=== PATIENT | male | born 2005 | race Caucasian/White ===

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

== ENCOUNTER 2025-01-07 15:52 | Day surgery (SDC) | payer OTHER, SELFPAY ==
[2025-01-07] VITALS (11 sets, daily range): BP systolic 107–130; BP diastolic 67–90; PULSE 88–102; RESP 16–20; TEMP 36.3–36.4; O2SAT 96–100; BMI 24.1
--- NOTE | 2025-01-07 16:45 | EX.ED.DYSGE1 ---
HPI History of Present Illness Chief Complaint: Foreign Body Informant: patient Narrative Narrative: Presents concerning esophageal food impaction. Ate chicken breast couple hours ago. He states he did cut it it was not a large piece. He tried swallowing felt stuck in his upper chest. Tried drinking water would come back up. He states similar sensation when he had impaction in May of last year requiring endoscopy. This was done here. He has not tried carbonated drink. No issues since the last time. Prior similar symptoms: Yes PFSH PFSH Medical History Seasonal allergies SVT (supraventricular tachycardia) Home Medications ?Medication ?Instructions ?Recorded ?Last Taken ?Type lisdexamfetamine 30 mg capsule 30 mg PO DAILY 06/15/23 Unknown History estradiol 1 mg tablet 1 mg PO DAILY 01/07/25 Unknown History omeprazole 40 mg capsule,delayed 40 mg PO DAILY #30 caps 01/07/25 Unknown Rx release Allergy/AdvReac Type Severity Reaction Status Date / Time No Known Allergies Allergy Verified 01/07/25 15:54 Surgical History History of biopsy History of foot surgery Social History Smoking Status: Never smoker alcohol intake: never substance use type: does not use what type of physical activity do you participate in: walking, weight training and other details: Hiking frequency: 3-4 times per week ROS ROS ED Constitutional Constitutional ED: Denies fever(s) ENT ENT ED: Reports other Details: Dysphagia, food impaction Cardiovascular Cardiovascular: Denies chest pain Respiratory/Chest Respiratory/Chest: Denies cough Gastrointestinal Gastrointestinal: Denies diarrhea or vomiting Musculoskeletal Musculoskeletal: Denies none Integumentary Denies rash or wounds Neurologic Neurologic: Denies weakness EXAM Physical Exam Const Vital Signs: 01/07/25 15:54 01/07/25 16:34 01/07/25 17:58 Temperature 97.6 F L 97.6 F L Temperature Source Temporal Pulse Rate 96 96 Respiratory Rate 18 18 Respiratory Effort Normal Respiratory Pattern Normal Blood Pressure 130/86 H 130/86 H Blood Pressure Mean 100 Blood Pressure Source Blood Pressure Position Blood Pressure Location Baseline BP Pulse Ox 98 98 Oxygen Delivery Method Room Air Room Air 01/07/25 18:57 01/07/25 19:00 01/07/25 19:02 Temperature 97.5 F L 97.5 F L Temperature Source Temporal Pulse Rate 102 H 102 H 99 Respiratory Rate 20 H 20 H 16 Respiratory Effort Respiratory Pattern Normal Blood Pressure 119/89 H 116/86 H 119/89 H Blood Pressure Mean 99 96 Blood Pressure Source Monitor Monitor Blood Pressure Position Semi-Fowlers Semi-Fowlers Blood Pressure Location Right Arm Right Arm Baseline BP 130/86 130/86 Pulse Ox 96 98 97 Oxygen Delivery Method Room Air Room Air Room Air 01/07/25 19:05 01/07/25 19:10 01/07/25 19:15 Temperature Temperature Source Pulse Rate 100 99 99 Respiratory Rate 20 H 18 20 H Respiratory Effort Respiratory Pattern Blood Pressure 118/90 H 110/67 110/82 H Blood Pressure Mean 99 81 91 Blood Pressure Source Monitor Monitor Monitor Blood Pressure Position Semi-Fowlers Semi-Fowlers Semi-Fowlers Blood Pressure Location Right Arm Right Arm Right Arm Baseline BP 130/86 130/86 130/86 Pulse Ox 100 96 97 Oxygen Delivery Method Room Air Room Air Room Air 01/07/25 19:20 01/07/25 19:25 01/07/25 19:33 Temperature Temperature Source Pulse Rate 100 95 Respiratory Rate 20 H 20 H Respiratory Effort Respiratory Pattern Normal Blood Pressure 107/87 H 116/77 Blood Pressure Mean 93 90 Blood Pressure Source Monitor Monitor Blood Pressure Position Semi-Fowlers Semi-Fowlers Blood Pressure Location Right Arm Right Arm Baseline BP 130/86 130/86 Pulse Ox 100 98 Oxygen Delivery Method Room Air Room Air 01/07/25 19:37 Temperature 97.3 F L Temperature Source Temporal Pulse Rate 88 Respiratory Rate 16 Respiratory Effort Respiratory Pattern Blood Pressure 107/77 Blood Pressure Mean 87 Blood Pressure Source Monitor Blood Pressure Position Semi-Fowlers Blood Pressure Location Right Arm Baseline BP 130/86 Pulse Ox 98 Oxygen Delivery Method Room Air Positive well nourished and well developed General Appearance ED: well developed and NAD HEENT Reports moist mucous membranes normocephalic and atraumatic Eyes General Eye ED: Yes normal appearance of both eyes Neck full ROM Chest Wall Chest: Negative for tenderness Resp normal respiratory effort and normal air movement Effort and Inspection: symmetric chest movement; Negative for respiratory distress Cardio regular rate, regular rhythm and no murmurs Peripheral Pulses: pulses 2+ throughout GI normal to inspection, nondistended, normoactive bowel sounds and non-tender Palpation: Negative for guarding or rebound tenderness present Extremity normal to inspection General Extremety ED: Negative for edema or tenderness General Extremity: Negative for edema Neuro oriented x3 and no sensory deficits noted Sensorium / Orientation: awake and alert Skin no rashes or lesions noted and no wounds MDM MDM MDM Narrative Medical decision making narrative: Interventions / MDM: Differential diagnosis: Esophageal food impaction, dysphagia Diagnosis considered but do not suspect: N/A My EKG interpretation: N/A Imaging independently reviewed and interpreted by myself: N/A External documents reviewed: ED visit May 2023 for steak impaction resolved after endoscopy. Test considered but not ordered:N/A ED course: Patient similar symptoms from self impaction. Ate chicken this time. Bedside tried carbonated drink, had him stand and heel strike 2 times, he states mild relief however will come back up. Will give glucagon and retry. 1705: Glucagon given reattempt multiple times with little strikes, no success. I will discuss with Dr. Pederson who is on-call and taking care of him on his last event. 1715: I spoke with Dr. Pederson who will call in the team for endoscopy. Re-evaluation: stable Disposition discussed with patient/family/significant other: Patient Case discussed with consulting clinician: General Surgery This note was generated with [employer] dictation software. It may contain incorrect words, spelling, and punctuation that were not noted in checking the note before signing. Discharge Plan Dx/Rx/DC Orders Clinical Impression: Esophageal obstruction due to food impaction, Dysphagia Disposition Disposition: Acute Care Hospital [facility] Discharge Date/Time: 01/07/25 18:37
[2025-01-07] MEDS: Glucagon 1 MG/ML Syringe IV (16:55)
--- NOTE | 2025-01-07 17:56 | PRE.ANES_ITS ---
ASA Classification* ASA Classification ASA Classification: 2 and E Assessment & Plan Anesthesia* Anesthesia Assessment Anesthesia Assessment: Discussed sedation and/or anesthesia options, risks, benefits, and alternatives with patient/parents/legal guardian/POA. Questions invited. The patient/parents/legal guardian/POA seems to understand and agrees to proceed with anesthesia plan. Reviewed the physical assessment, medical history, allergy history and patient home medications list prior to surgery/procedure/anesthetic and documented any changes. Performed airway and anesthesia risk assessments. Anesthesia Type Anesthesia Type: MAC History Source History Obtained from:: Patient and Chart Anesthesia Focused Assessment* Temperature: 97.6 F Pulse Rate: 96 Blood Pressure: 130/86 Respiratory Rate: 18 Pulse Ox: 98 Oxygen Delivery Method: Room Air Airway Assessment Mouth opens: >3 cm Mallampati Score: I Teeth Condition: Intact Neck Range of motion (ROM): Full ROM Labs Anesthesia Preop lab: CBC WBC 8.3 K/mm3 (4.5-13.0) 06/16/23 01:40 06/16/23 RBC 5.31 M/mm3 (4.5-5.1) H 06/16/23 01:40 06/16/23 Hgb 16.0 g/dL (13.0-16.5) 06/16/23 01:40 06/16/23 Hct 48.5 % (36-47) H 06/16/23 01:40 06/16/23 Plt Count 225 K/mm3 (150-450) 06/16/23 01:40 06/16/23 CHEMISTRY Potassium 3.9 mmol/L (3.5-5.1) 06/16/23 01:40 06/16/23 Sodium 140 mmol/L (136-145) 06/16/23 01:40 06/16/23 BUN 10 mg/dL (7-18) 06/16/23 01:40 06/16/23 Creatinine 0.85 mg/dL (0.70-1.30) 06/16/23 01:40 06/16/23 Glucose 107 mg/dL (74-106) H 06/16/23 01:40 06/16/23 COAG Pre-Assessment Diagnosis/Proposed Procedure Planned Operative Procedure(s): Esophagogastroduodenoscopy Anesthesia History Anesthesia History - filling separator: Anesthesia History - filling separator Hx Hospitalization Any Problems With Anesthesia No 06/16/23 03:42 Cholinesterase deficiency No 06/16/23 03:42 You/Your Family Experience No 06/16/23 03:42 fever (hyperthermia) with Relationship Recent Exposure to Contagious No 06/16/23 03:42 Disease Does patient have nerve No 06/16/23 03:42 stimulator Patient instructed to have device shut off --Does patient have Pacemaker or ICD? When Was Last Pacemaker Check QUESTION #4 FULL TEXT: You/Your Family Experience fever (hyperthermia) with Anesthesia Last Oral Intake Last Oral intake: Last Oral Intake NPO since Meds taken in AM with sips of water? Meds patient instructed to take am of surgery Any additional information?: Yes NPO since: 15:30 PONV PONV - filling separator: PONV - filling separator Female HX of Motion Sickness HX of N/V After Surgery Non-Smoker Duration of Surgery greater than 60 minutes Number of Risk Factors PONV Score Height & Weight Height & Weight: Anesthesia: Height & Weight Height 6 ft 1 in 01/07/25 15:54 Weight: 82.962 kg 01/07/25 15:54 Body Mass Index (BMI) 24.1 01/07/25 15:54 Respiratory Assessment Respiratory Assessment - filling separator: Respiratory Tract Infection Hx - filling separator Hx Respiratory Tract Infection No 06/16/23 03:42 STOP Sleep Apnea STOP Sleep Apnea - filling separator: STOP Sleep Apnea - filling separator Hx Hypertension No 06/16/23 03:42 Hx Sleep Apnea No 06/16/23 05:12 CPAP BIPAP Do you snore loudly (louder than talking or can be heard Do you often feel tired/ fatigued/ sleepy during daytime? Has anyone observed you stop breathing during sleep? STOP Results QUESTION #5 FULL TEXT : Do you snore loudly (louder than talking or can be heard through closed doors)? 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 Specify any problems Hx of Preganancy in last 3 Months Nurse Filling Out Transfusion & Questions: Date: Time: Patient unable to answer at this time (ie. confused, unrespo /Reproduction History /Reproductive History - filling separator: /Reproductive Hx- filling separator Hx Now Gestational Age (in weeks): EDC: Hx Hx Para [facility] Medical History Seasonal allergies SVT (supraventricular tachycardia) Home Medications ?Medication ?Instructions ?Recorded ?Last Taken ?Type lisdexamfetamine 30 mg capsule 30 mg PO DAILY 06/15/23 Unknown History estradiol 1 mg tablet 1 mg PO DAILY 01/07/25 Unkno wn History Allergy/AdvReac Type Severity Reaction Status Date / Time No Known Allergies Allergy Verified 01/07/25 15:54 Surgical History History of biopsy History of foot surgery Social History Smoking Status: Never smoker alcohol intake: never substance use type: does not use what type of physical activity do you participate in: walking, weight training and other details: Hiking frequency: 3-4 times per week Review of Systems (Anesthesia) ROS Narrative System reviewed and no additional complaints, except as documented.
[2025-01-07] MEDS: Lactated Ringers 1,000 ML 15 ML IV (18:00)
--- NOTE | 2025-01-07 18:04 | EX.PCM.CON.S ---
Assessment & Plan Assessment/Plan (1) Esophageal obstruction due to food impaction: PLAN: Plan Plan to give patient a prescription for omeprazole and have patient follow-up in the office in 2 to 3 weeks after procedure. I have discussed the above with the patient. I have offered the patient esophagogastroduodenoscopy for evaluation. And removal of foreign body. I have explained the risks/benefits of the procedure and described the procedure. I have discussed the risks with the patient, including but not limited to: infection, bleeding, perforation of the GI tract requiring emergency surgery, inability to complete the procedure, injury to any internal organs, complications of anesthesia, etc. - the patient understands and agrees to proceed. I have answered all the patient's questions to the patient's satisfaction and the patient has no further questions. Sweetie Pederson M.D. Pager: [phone] [facility] [address] [place] [address], [address] [place] [id number] Office: [phone] HPI Consult Data Date of Consult: 01/07/25 HPI Narrative Reason for Consultation: Esophageal food impaction HPI Narrative: JUAN M WAN, is a 19 M who presents to the ER due to esophageal food impaction. Patient had chicken just after 3 PM today. Patient states he is not able to swallow his saliva. Patient did previously have an EGD due to food impaction in May 2023 no stricture was seen. Patient does give a history of food catching for years. Patient is never been on a PPI. [facility] Medical History Seasonal allergies SVT (supraventricular tachycardia) Home Medications ?Medication ?Instructions ?Recorded ?Last Taken ?Type lisdexamfetamine 30 mg capsule 30 mg PO DAILY 06/15/23 Unknown History estradiol 1 mg tablet 1 mg PO DAILY 01/07/25 Unknown History Allergy/AdvReac Type Severity Reaction Status Date / Time No Known Allergies Allergy Verified 01/07/25 15:54 Surgical History History of biopsy History of foot surgery Social History Smoking Status: Never smoker alcohol intake: never substance use type: does not use what type of physical activity do you participate in: walking, weight training and other details: Hiking frequency: 3-4 times per week Physical Exam Const alert, oriented x3 and no apparent distress HEENT normocephalic and head/scalp atraumatic Resp normal respiratory effort Cardio regular rate GI soft to palpation and non-tender; Negative for non-distended Palpation: Negative for guarding Extremity no clubbing, cyanosis or edema Skin no rashes or lesions noted Neuro CN's II-XII intact bilaterally Psych mental status grossly normal
[2025-01-07] MEDS: Lactated Ringers 500 ML IV (18:13)
--- NOTE | 2025-01-07 18:57 | OP.PROVAT_ITS ---
01/07/2025 Elda Hidalgo Re : Upper GI endoscopy procedure for Frankie Hidalgo This procedure was performed on December. My impressions and recommendations are as follows: Impressions : - Normal examined duodenum. - Erythematous mucosa in the antrum. - Food in the lower third of the esophagus. Removal was successful. Recommendations : - Discharge patient to home. - Soft diet. - Continue present medications. - Use Prilosec (omeprazole) 40 mg PO daily. - Return to my office in 2 weeks. My findings are described in the full procedure note, which is enclosed. If I can be of further assistance, please feel free to contact me at Doctor phone number(s): , Work: . Sincerely, MD Sweetie Acosta MD 01/07/2025 6:56:37 PM This report has been signed electronically.
--- NOTE | 2025-01-07 18:57 | OP.EGD_ITS ---
Patient Name: Frankie Mason Procedure Date: 01/07/2025 6:12 PM Date of : 2005 Age: 19 Procedure: Upper GI endoscopy Indications: Foreign body in the esophagus Providers: Sweetie Pederson MD Medicines: Monitored Anesthesia Care Complications: No immediate complications. Procedure: Pre-Anesthesia Assessment: - Prior to the procedure, a History and Physical was performed, and patient medications and allergies were reviewed. The patient's tolerance of previous anesthesia was also reviewed. The risks and benefits of the procedure and the sedation options and risks were discussed with the patient. All questions were answered, and informed consent was obtained. Prior Anticoagulants: The patient has taken no anticoagulant or antiplatelet agents. ASA Grade Assessment: Per anesthesia. After reviewing the risks and benefits, the patient was deemed in satisfactory condition to undergo the procedure. After obtaining informed consent, the endoscope was passed under direct vision. Throughout the procedure, the patient's blood pressure, pulse, and oxygen saturations were monitored continuously. The Endoscope was introduced through the mouth, and advanced to the second part of duodenum. The upper GI endoscopy was technically difficult and complex due to the patient's oxygen desaturation. Successful completion of the procedure was aided by administering oxygen and general anesthesia was induced after sats improved. Moderate Sedation: After desat with appropriate oxygenation- general anesthesia was induced Scope In: 6:22:47 PM Scope Out: 6:43:45 PM Total Procedure Duration Time 0 hours 20 minutes 58 seconds Findings: The examined duodenum was normal. Striped mildly erythematous mucosa without bleeding was found in the gastric antrum. Food was found in the lower third of the esophagus. Removal was accomplished with a bernie forceps and overtube. Partial removal with bernie. After intubating and replacing scope the rest of the food had passed into the stomach. The cardia and gastric fundus were normal on retroflexion. Impression: - Normal examined duodenum. - Erythematous mucosa in the antrum. - Food in the lower third of the esophagus. Removal was successful. Recommendation: - Discharge patient to home. - Soft diet. - Continue present medications. - Use Prilosec (omeprazole) 40 mg PO daily. - Return to my office in 2 weeks. Procedure Code(s): --- Professional --- 29889, Esophagogastroduodenoscopy, flexible, transoral; with removal of foreign body(s) Diagnosis Code(s): --- Professional --- K31.89, Other diseases of stomach and duodenum T18.128A, Food in esophagus causing other injury, initial encounter T18.108A, Unspecified foreign body in esophagus causing other injury, initial encounter CPT copyright 2021 [employer]. All rights reserved. The codes documented in this report are preliminary and upon local combination truck driver review may be revised to meet current compliance requirements. MD Sweetie Acosta MD 01/07/2025 6:56:37 PM This report has been signed electronically. Number of Addenda: 0 Note Initiated On: 01/07/2025 6:12 PM
--- NOTE | 2025-01-07 18:57 | PCM.POST.ANE ---
Anesthesia: Postop Eval I Current Vital Signs Temperature: 97.5 F Pulse Rate: 99 Blood Pressure: 119/89 Respiratory Rate: 16 Pulse Ox: 97 Oxygen Delivery Method: Room Air Assessment Airway patent: Yes Spontaneous unlabored respirations: Yes Mental status: Awake and Calm nausea: No Vomiting: No Anesthesia Complication: Yes Anesthesia Complication Comment:: Patient had episode of desaturation requiring bag/mask ventilation. To avoid further desaturation episodes it was decided to intubate the patient. Easy intubation. Airway secured. Procedure resumed. Fluid Hydration Crystalloid volume administer (ml): 500 Total IV fluid infused: 500 Progress Note Anesthesia document: Postop Eval 1 completed: Yes
[2025-01-07] MEDS: Pantoprazole Sodium 40 MG in 0.9% Normal Saline (100mL MB+) 100 ML 300 MG IV (19:05)
--- NOTE | 2025-01-07 19:25 | PCM.POSTANE2 ---
Anesthesia Postop Eval I Sum Postop Eval Completion status Anesthesia document: Postop Eval 1 completed: Yes Anesthesia Postop Eval I Summary Anesthesia Postop Eval I Summary: Anesthesia Postop Eval I: Assessment Summary Airway patent Yes 01/07/25 19:02 Spontaneous unlabored Yes 01/07/25 19:02 respirations Mental status Awake,Calm 01/07/25 19:02 nausea No 01/07/25 19:02 Vomiting No 01/07/25 19:02 Anesthesia Postop Eval I: Fluid Summary Crystalloid volume administer 500 01/07/25 19:02 (ml) Colloids volume administered ( ml) Blood Product volume administered (ml) Total IV fluid infused 500 01/07/25 19:02 Anesthesia Postop Eval I: Summary Notes Anesthesia Complication Yes 01/07/25 19:02 Anesthesia Complication Patient had 01/07/25 19:02 Comment: episode of desaturation requiring bag/mask ventilation. To avoid further desaturation episodes it was decided to intubate the patient. Easy intubation. Airway secured. Procedure resumed. Post-operative progress note Anesthesia: Postop Eval II Evaluation Mental status: Awake and Calm Pain Level: 1 nausea: No Vomiting: No Complications Anesthesia Complication: No
== END 2025-01-07 19:53 | disposition home or self-care (01) ==
LOC: ED 17:13 → EN 17:37 → AC 18:02
PROVIDERS: Emergency Provider Emergency Medicine; PCP Pediatrics; Visit Provider Surgery
PROC: 0DJ08ZZ Inspection of Upper Intestinal Tract, Via Natural or Artificial Opening Endoscopic (ICD-10-PCS; CPT 43235; principal; 2025-01-07 15:30)
DX: T18.128A Food in esophagus causing other injury, initial encounter (principal); K22.2 Esophageal obstruction; K31.89 Other diseases of stomach and duodenum; R13.10 Dysphagia, unspecified; W44.F3XA Food entering into or through a natural orifice, initial encounter; Z79.899 Other long term (current) drug therapy
CPT/HCPCS: 43247; 99284; A4216; J1610; J2405

== ENCOUNTER 2025-03-01 07:54 | Day surgery (SDC) | payer OTHER, SELFPAY ==
[2025-03-01] VITALS (9 sets, daily range): BP systolic 93–130; BP diastolic 56–97; PULSE 55–78; RESP 14–16; TEMP 36.1–36.3; O2SAT 97–100; BMI 22.4
--- NOTE | 2025-03-01 08:34 | HP.PCM_ITS ---
HPI - General General Date of Service: 03/01/25 HPI Narrative JUAN M WAN, is a 19 M who presents for EGD due to history of food impactions x 2 1 in May 2023 and 1 in December 2024. Patient has been on omeprazole since then states he has had improvement of his dysphagia which was only intermittent as far as history goes. Patient denies any other changes since previous office visit. Office visit 01/20/2025 [facility] HPI: 19-year-old male presents status post EGD for esophageal food impaction. Patient also had an EGD for food impaction last year in May. Patient states he only has occasional food catching maybe once every 6 months or so. Patient states previously he did have reflux in 2021 or 2022 but currently does not have many symptoms. Patient did just start taking the omeprazole about 3 to 4 days ago many symptoms. Patient did just start taking the omeprazole about 3 to 4 days ago from the EGD. EGD did not show any obvious stricture, similar to the one in 2023. [facility] Medical History Wears glasses ADHD Migraine headache Gastric reflux Non-smoker Seasonal allergies SVT (supraventricular tachycardia) Home Medications ?Medication ?Instructions ?Recorded ?Last Taken ?Type lisdexamfetamine 30 mg capsule 60 mg PO DAILY 06/15/23 Unknown History estradiol 1 mg tablet 1 mg PO DAILY 01/07/25 Unkno wn History omeprazole 40 mg capsule,delayed 40 mg PO DAILY #30 ca ps 01/07/25 Unknown Rx release Allergy/AdvReac Type Severity Reaction Status Date / Time No Known Allergies Allergy Verified 03/01/25 08:08 Surgical History History of biopsy History of foot surgery Social History Smoking Status: Never smoker alcohol intake: never substance use type: does not use what type of physical activity do you participate in: walking, weight training and other details: Hiking frequency: 3-4 times per week Past Medical/Surgical History Planned Operation Planned Operative Procedure(s): EGD Previous Hospitalizations/Surgeries HX Hospitalizations: No Any Problems With Anesthesia: No You/Your Family Experience Fever (Hyperthermia) With Anes: No Cholinesterase deficiency: No Cardiovascular Hx Hypertension: No Respiratory Hx Sleep Apnea: No Hx Respiratory Tract Infection/Cold (presently): No Do You Snore Loudly (louder than talking or can be heard): No Do You Often Feel Tired/ Fatigued/ Sleepy Dring Daytime?: No Has Anyone Observed You Stop Breathing During Sleep?: No Result (for STOP score): Negative Smoking Status: Never smoker Neurological Does patient have nerve stimulator: No Reproduction : No Miscellaneous Recent Exposure to Contagious Disease: No Allergies No Known Allergies Allergy (Verified 03/01/25 08:08) Discharge Is Pt Admitted From a Snf, or a Senior Living: No Who Could Help: MOM After D/C, Where Do you Plan to Go: Return Home Vital Signs Vital Signs Vital Signs: 03/01/25 08:09 03/01/25 08:09 Temperature 97.3 F L Temperature Source Temporal Pulse Rate 67 Respiratory Rate 16 Respiratory Pattern Normal Blood Pressure 130/68 H Blood Pressure Mean 88 Blood Pressure Source Monitor Blood Pressure Position Semi-Fowlers Blood Pressure Location Left Arm Pulse Ox 100 Oxygen Delivery Method Room Air Weight Weight: 169 lb 12.095 oz Body Mass Index (BMI) 22.4 Physical Exam Const alert, oriented x3 and no apparent distress HEENT normocephalic and head/scalp atraumatic Resp normal respiratory effort Cardio regular rate GI soft to palpation and non-tender; Negative for non-distended Palpation: Negative for guarding Extremity no clubbing, cyanosis or edema Skin no rashes or lesions noted Neuro CN's II-XII intact bilaterally Psych mental status grossly normal Assessment & Plan Assessment/Plan (1) Dysphagia: Surgery Risks - Colonoscopy I discussed with the patient the risks of the procedure: Yes Risks Include but are not Limited To: Plan for an EGD only risks include but are not limited to: Bleeding, perforation requiring further surgery
--- NOTE | 2025-03-01 09:00 | EGD_PTH ---
PATIENT: JUAN M WAN LOC: EN U#:[id number] AGE/SX: 19/M ROOM: RE03/01/[address]: Dr. Sweetie Pederson MD : 2005 BED: DIS: 03/01/2025 SPEC #: [id number] RECD: 03/01/25 11:38 STATUS: SALVATORE NATHALY #: [id number] MOHIT: 03/01/25 09:[address]: Sweetie Pederson DEPT: SURGICAL PATHOLOGY RECD BY: Ryder Posey ENTERED: 03/01/25 13:27 SP TYPE: EGD BIOPSY TAMMY DR: Dr. Elda Hidalgo MD Tissues: A - Esophagus, NOS B - Esophagus, NOS C - Esophagus, NOS Procedures: Surgery Specimen Level IV HEADER OPERATION: EGD, biopsy PRE-OP DIAGNOSIS: Dysphagia TISSUE SUBMITTED: A- GE junction biopsy, B- Random lower esophagus biopsy, C- Random esophagus biopsy - rule out eosinophilic esophagitis MICROSCOPIC DIAGNOSIS A. Esophagus, biopsy: * Squamous mucosa with reactive changes and > 80 eosinophils per high power field. * Columnar mucosa negative for goblet cell metaplasia. B. Esophagus, lower, random biopsy: * Squamous mucosa with reactive changes and > 50 eosinophils per high power field. C. Esophagus, random, biopsy: * Squamous mucosa with up to 8 eosinophils per high power field. MICROSCOPIC DESCRIPTION Slides are reviewed. GROSS DESCRIPTION A. Received in fixative is one container labeled with the patient's name and designated GE junction biopsy. The specimen consists of one irregular fragment of nash tissue that measures 0.5 cm. The specimen is totally submitted in one cassette. B. Received in fixative is one container labeled with the patient's name and designated Random lower esophagus biopsy. The specimen consists of one irregular fragment of nash tissue that measures 0.3 cm. The specimen is totally submitted in one cassette. C. Received in fixative is one container labeled with the patient's name and designated Random esophagus biopsy. The specimen consists of two irregular fragments of nash tissue that measure 0.1 and 0.6 cm. Smaller fragment unlikely to survive processing. The specimen is totally submitted in one cassette. IN 03/01/2025 CPT:38937j0
--- NOTE | 2025-03-01 09:02 | PCM.PRE.AN2 ---
ASA Classification* ASA Classification ASA Classification: 2 Assessment & Plan Anesthesia* Anesthesia Assessment Anesthesia Assessment: Discussed sedation and/or anesthesia options, risks, benefits, and alternatives with patient/parents/legal guardian/POA. Questions invited. The patient/parents/legal guardian/POA seems to understand and agrees to proceed with anesthesia plan. Reviewed the physical assessment, medical history, allergy history and patient home medications list prior to surgery/procedure/anesthetic and documented any changes. Performed airway and anesthesia risk assessments. Anesthesia Type Anesthesia Type: MAC History Source History Obtained from:: Patient and Chart Anesthesia Focused Assessment* Temperature: 97.3 F Pulse Rate: 67 Blood Pressure: 130/68 Respiratory Rate: 16 Pulse Ox: 100 Oxygen Delivery Method: Room Air Airway Assessment Mouth opens: >3 cm Mallampati Score: I Teeth Condition: Intact Neck Range of motion (ROM): Full ROM Labs Anesthesia Preop lab: CBC WBC, (4.5-13.0) 8.3 K/mm3 06/16/23, 01:40 RBC, (4.5-5.1) 5.31 M/mm3 H 06/16/23, 01:40 Hgb, (13.0-16.5) 16.0 g/dL 06/16/23, 01:40 Hct, (36-47) 48.5 % H 06/16/23, 01:40 Plt Count, (150-450) 225 K/mm3 06/16/23, 01:40 CHEMISTRY Potassium, (3.5-5.1) 3.9 mmol/L 06/16/23, 01:40 Sodium, (136-145) 140 mmol/L 06/16/23, 01:40 BUN, (7-18) 10 mg/dL 06/16/23, 01:40 Creatinine, (0.70-1.30) 0.85 mg/dL 06/16/23, 01:40 Glucose, (74-106) 107 mg/dL H 06/16/23, 01:40 COAG Pre-Assessment Diagnosis/Proposed Procedure Planned Operative Procedure(s): EGD Anesthesia History Anesthesia History - systems lead: Anesthesia History - systems lead Hx Hospitalization No 03/01/25 08:37 Any Problems With Anesthesia No 03/01/25 08:37 Cholinesterase deficiency No 03/01/25 08:37 You/Your Family Experience No 03/01/25 08:37 fever (hyperthermia) with Relationship Recent Exposure to Contagious No 03/01/25 08:37 Disease Does patient have nerve No 03/01/25 08:37 stimulator Patient instructed to have device shut off --Does patient have Pacemaker No 03/01/25 08:09 or ICD? When Was Last Pacemaker Check QUESTION #4 FULL TEXT: You/Your Family Experience fever (hyperthermia) with Anesthesia Last Oral Intake Last Oral intake: Last Oral Intake NPO since 22:30 03/01/25 08:09 Meds taken in AM with sips of No 03/01/25 08:09 water? Meds patient instructed to take am of surgery PONV PONV - systems lead: PONV - systems lead Female No 02/24/25 10:01 HX of Motion Sickness No 02/24/25 10:01 HX of N/V After Surgery No 02/24/25 10:01 Non-Smoker Yes 02/24/25 10:01 Duration of Surgery greater No 02/24/25 10:01 than 60 minutes Number of Risk Factors 1 02/24/25 10:01 PONV Score Low Risk 02/24/25 10:01 Height & Weight Height & Weight: Anesthesia: Height & Weight Height 6 ft 1 in 03/01/25 08:09 Weight: 77 kg 03/01/25 08:09 Body Mass Index (BMI) 22.4 03/01/25 08:09 Respiratory Assessment Respiratory Assessment - systems lead: Respiratory Tract Infection Hx - systems lead Hx Respiratory Tract Infection No 03/01/25 08:37 STOP Sleep Apnea STOP Sleep Apnea - systems lead: STOP Sleep Apnea - systems lead Hx Hypertension No 03/01/25 08:37 Hx Sleep Apnea No 03/01/25 08:37 CPAP BIPAP Do you snore loudly (louder No 03/01/25 08:37 than talking or can be heard Do you often feel tired/ No 03/01/25 08:37 fatigued/ sleepy during daytime? Has anyone observed you stop No 03/01/25 08:37 breathing during sleep? STOP Results Negative 03/01/25 08:37 QUESTION #5 FULL TEXT : Do you snore loudly (louder than talking or can be heard through closed doors)? 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 Specify any problems Hx of Preganancy in last 3 N/A 02/24/25 10:01 Months Nurse Filling Out Transfusion VLEHMAN 02/24/25 10:01 & Questions: Date: 02/24/25 02/24/25 10:01 Time: 10:08 02/24/25 10:01 Patient unable to answer at this time (ie. confused, unrespo /Reproduction History /Reproductive History - systems lead: /Reproductive Hx- systems lead Hx Now No 03/01/25 08:37 Gestational Age (in weeks): EDC: Hx Hx Para Hx Section SAB Active Medications Active Medications: Current Medications Generic Name Dose Route Start Last Admin Trade Name Freq PRN Reason Stop Dose Admin Lactated Ringer's 1,000 mls @ 15 mls/hr 03/01/25 08:00 IV .Q48H JOSE L PFSH Medical History Wears glasses ADHD Migraine headache Gastric reflux Non-smoker Seasonal allergies SVT (supraventricular tachycardia) Home Medications ?Medication ?Instructions ?Recorded ?Last Taken ?Type lisdexamfetamine 30 mg capsule 60 mg PO DAILY 06/15/23 Unknown History estradiol 1 mg tablet 1 mg PO DAILY 01/07/25 Unknown History omeprazole 40 mg capsule,delayed 40 mg PO DAILY #30 caps 01/07/25 Unknown Rx release Allergy/AdvReac Type Severity Reaction Status Date / Time No Known Allergies Allergy Verified 03/01/25 08:08 Surgical History (Updated 03/01/25 @ 09:[address] Forrest Lopez MD) H/O esophagogastroduodenoscopy History of biopsy History of foot surgery Social History Smoking Status: Never smoker alcohol intake: never substance use type: does not use what type of physical activity do you participate in: walking, weight training and other details: Hiking frequency: 3-4 times per week Review of Systems (Anesthesia) ROS Narrative System reviewed and no additional complaints, except as documented.
--- NOTE | 2025-03-01 10:02 | OP.EGD_ITS ---
Patient Name: Frankie Mason Procedure Date: 03/01/2025 9:46 AM Date of : 2005 Age: 19 Procedure: Upper GI endoscopy Indications: Dysphagia Providers: Sweetie Pederson MD Referring MD: Elda Hidalgo Medicines: Monitored Anesthesia Care Patient Profile: This is a 19 year old male. Complications: No immediate complications. Procedure: Pre-Anesthesia Assessment: - Prior to the procedure, a History and Physical was performed, and patient medications and allergies were reviewed. The patient's tolerance of previous anesthesia was also reviewed. The risks and benefits of the procedure and the sedation options and risks were discussed with the patient. All questions were answered, and informed consent was obtained. Prior Anticoagulants: The patient has taken no anticoagulant or antiplatelet agents. ASA Grade Assessment: Per anesthesia. After reviewing the risks and benefits, the patient was deemed in satisfactory condition to undergo the procedure. After obtaining informed consent, the endoscope was passed under direct vision. Throughout the procedure, the patient's blood pressure, pulse, and oxygen saturations were monitored continuously. The Endoscope was introduced through the mouth, and advanced to the second part of duodenum. The upper GI endoscopy was accomplished without difficulty. The patient tolerated the procedure well. Scope In: 9:49:49 AM Scope Out: 9:55:28 AM Total Procedure Duration Time 0 hours 5 minutes 39 seconds Findings: The Z-line was irregular and was found 40 cm from the incisors. Biopsies were taken with a cold forceps for histology. Biopsies were taken with a cold forceps for Helicobacter pylori cultures. The examined duodenum was normal. The cardia and gastric fundus were normal on retroflexion. No gross lesions were noted in the entire examined stomach. Biopsies were obtained from the distal and mid esophagus with cold forceps for histology of suspected eosinophilic esophagitis. Impression: - Z-line irregular, 40 cm from the incisors. Biopsied. - Normal examined duodenum. - No gross lesions in the entire stomach. - Biopsies were taken with a cold forceps for evaluation of eosinophilic esophagitis. Recommendation: - Discharge patient to home. - Resume previous diet. - Continue present medications. - Await pathology results. Procedure Code(s): --- Professional --- 83249, Esophagogastroduodenoscopy, flexible, transoral; with biopsy, single or multiple Diagnosis Code(s): --- Professional --- K22.89, Other specified disease of esophagus R13.10, Dysphagia, unspecified CPT copyright 2021 [employer]. All rights reserved. The codes documented in this report are preliminary and upon mobile paint specialist review may be revised to meet current compliance requirements. MD Sweetie Acosta MD 03/01/2025 10:01:19 AM This report has been signed electronically. Number of Addenda: 0 Note Initiated On: 03/01/2025 9:46 AM
--- NOTE | 2025-03-01 10:02 | OP.PROVAT_ITS ---
03/01/2025 Elda Hidalgo Re : Upper GI endoscopy procedure for Frankie Hidalgo This procedure was performed on Saturday, March 01, 2025. My impressions and recommendations are as follows: Impressions : - Z-line irregular, 40 cm from the incisors. Biopsied. - Normal examined duodenum. - No gross lesions in the entire stomach. - Biopsies were taken with a cold forceps for evaluation of eosinophilic esophagitis. Recommendations : - Discharge patient to home. - Resume previous diet. - Continue present medications. - Await pathology results. My findings are described in the full procedure note, which is enclosed. If I can be of further assistance, please feel free to contact me at Doctor phone number(s): , Work: . Sincerely, MD Sweetie Acosta MD 03/01/2025 10:01:19 AM This report has been signed electronically.
--- NOTE | 2025-03-01 10:26 | PCM.POST.ANE ---
Anesthesia: Postop Eval I Current Vital Signs Temperature: 97 F Pulse Rate: 71 Blood Pressure: 126/97 Respiratory Rate: 14 Pulse Ox: 97 Oxygen Delivery Method: Room Air Assessment Airway patent: Yes Spontaneous unlabored respirations: Yes Mental status: Asleep nausea: No Vomiting: No Anesthesia Complication: No Fluid Hydration Crystalloid volume administer (ml): 400 Total IV fluid infused: 400 Progress Note Anesthesia document: Postop Eval 1 completed: Yes
--- NOTE | 2025-03-01 12:32 | PCM.POSTANE2 ---
Anesthesia Postop Eval I Sum Postop Eval Completion status Anesthesia document: Postop Eval 1 completed: Yes Anesthesia Postop Eval I Summary Anesthesia Postop Eval I Summary: Anesthesia Postop Eval I: Assessment Summary Airway patent Yes 03/01/25 10:27 [email or web address] Spontaneous unlabored Yes 03/01/25 10:27 [email or web address] respirations Mental status Asleep 03/01/25 10:27 [email or web address] nausea No 03/01/25 10:27 [email or web address] Vomiting No 03/01/25 10:27 [email or web address] Anesthesia Postop Eval I: Fluid Summary Crystalloid volume administer 400 03/01/25 10:27 [email or web address] (ml) Colloids volume administered ( ml) Blood Product volume administered (ml) Total IV fluid infused 400 03/01/25 10:27 [email or web address] Anesthesia Postop Eval I: Summary Notes Anesthesia Complication No 03/01/25 10:27 [email or web address] Anesthesia Complication Comment: Post-operative progress note Anesthesia: Postop Eval II Evaluation Mental status: Awake and Calm Pain Level: 0 nausea: No Vomiting: No Complications Anesthesia Complication: No
== END 2025-03-01 11:17 | disposition home or self-care (01) ==
LOC: EN 07:54 → AC 07:59
PROVIDERS: PCP Pediatrics; Referring Provider Pediatrics; Visit Provider Surgery
PROC: 0DJ08ZZ Inspection of Upper Intestinal Tract, Via Natural or Artificial Opening Endoscopic (ICD-10-PCS; CPT 43235; principal; 2025-03-01 08:55)
DX: R13.10 Dysphagia, unspecified (principal); K21.9 Gastro-esophageal reflux disease without esophagitis; K22.89 Other specified disease of esophagus; F90.9 Attention-deficit hyperactivity disorder, unspecified type; Z79.899 Other long term (current) drug therapy
CPT/HCPCS: 43239; 88305; J2405